=== PATIENT | male | born 1960 | race Caucasian/White ===

== ENCOUNTER 2017-01-07 03:17 | Emergency (ER) | payer BC ==
[2017-01-07 03:37] LABS: BASOPHILS 0.2 %; BASOPHILS ABSOLUTE 0.01 10/3/uL (0.0-0.16); EOSINOPHILS 2.1 %; EOSINOPHILS ABSOLUTE 0.11 10/3/uL (0.0-0.53); ER CBC TAT 0 Hrs 09 Mins; IMMATURE GRANULOCYTES 0.2 %; IMMATURE GRANULOCYTES ABSOLUTE 0.01 10/3/uL (0.0-0.11); LYMPHOCYTES 31.1 %; LYMPHOCYTES ABSOLUTE 1.63 10/3/uL (0.67-4.30); MEAN CORPUS HGB CONC 34.9 g/dL (32.0-36.0); MEAN CORPUSCULAR HEMOGLOB 30.9 pg (26.0-34.0); MEAN CORPUSCULAR VOLUME 88.5 fL (80-100); MEAN PLATELET VOLUME 8.7 fL (9.2-13.0); MONOCYTES ABSOLUTE 0.47 10/3/uL (0.21-1.20); NEUTROPHILS 57.4 %; NEUTROPHILS ABSOLUTE 3.01 10/3/uL (2.02-8.40); PLATELET COUNT 230 10/3/uL (150-400); RBC DISTRIBUTION WIDTH 13.2 % (12.0-16.0); RED CELL COUNT 4.86 10/6/uL (4.7-6.1); WHITE BLOOD CELLS 5.2 10/3/uL (4.5-10.5)
[2017-01-07 03:38] LABS: MANUAL DIFF NO %
[2017-01-07 03:43] LABS: PARTIAL THROMBO TIME 25.7 SEC (22.5-37.2); PROTIME (NOT ORD) 12.8 SEC (12.0-14.5)
[2017-01-07 03:45] LABS: D-DIMER QUANTITATIVE 0.82 ug/mLFEU (< 0.50)
[2017-01-07 03:59] LABS: BUN (BLOOD UREA NITROGEN) 19 MG/DL (6-23); CALCIUM, SERUM 8.4 MG/DL (8.5-10.4); CHEST PAIN PROFILE TAT 0 Hrs 31 Mins; CHLORIDE, SERUM 106 MMOL/L (96-112); CO2 (CARBON DIOXIDE) 27 MMOL/L (24-34); CREATININE 1.06 MG/DL (0.70-1.30); GFR AFRICAN AMERICAN 92 ML/MIN (>=60); GFR NON AFRICAN AMERICAN 79 ML/MIN (>=60); GLUCOSE, SERUM 109 MG/DL (60-99); POTASSIUM, SERUM 3.9 MMOL/L (3.5-5.3); SODIUM, SERUM 141 MMOL/L (135-148); TROPONIN I <0.02 NG/ML (<0.05)
== END 2017-01-07 05:57 | disposition home or self-care (01) ==
LOC: ER 03:17
PROVIDERS: Specialist
DX: R00.2 Palpitations (principal); I10 Essential (primary) hypertension
CPT/HCPCS: 71010; 71275; 80048; 83735; 84443; 84484; 85025; 85379; 85610; 85730; 93005; 93225; 99285; Q9967

== ENCOUNTER 2017-01-07 22:04 | Emergency (ER) | payer BC ==
[2017-01-07 17:49] LABS: BASOPHILS 0.1 %; BASOPHILS ABSOLUTE 0.01 10/3/uL (0.0-0.16); EOSINOPHILS 0.3 %; EOSINOPHILS ABSOLUTE 0.02 10/3/uL (0.0-0.53); HEMATOCRIT 46.3 % (40.0-51.0); HEMOGLOBIN 16.2 g/dL (13.6-17.8); IMMATURE GRANULOCYTES 0.3 %; IMMATURE GRANULOCYTES ABSOLUTE 0.02 10/3/uL (0.0-0.11); LYMPHOCYTES 17.9 %; LYMPHOCYTES ABSOLUTE 1.41 10/3/uL (0.67-4.30); MEAN CORPUSCULAR HEMOGLOB 30.7 pg (26.0-34.0); MEAN CORPUSCULAR VOLUME 87.9 fL (80-100); MEAN PLATELET VOLUME 8.7 fL (9.2-13.0); MONOCYTES 4.8 %; MONOCYTES ABSOLUTE 0.38 10/3/uL (0.21-1.20); NEUTROPHILS 76.6 %; NEUTROPHILS ABSOLUTE 6.05 10/3/uL (2.02-8.40); PLATELET COUNT 235 10/3/uL (150-400); RED CELL COUNT 5.27 10/6/uL (4.7-6.1)
[2017-01-07 17:50] LABS: ER CBC TAT 0 Hrs 12 Mins; MANUAL DIFF NO %; WHITE BLOOD CELLS 7.9 10/3/uL (4.5-10.5)
[2017-01-07 18:06] LABS: CALCIUM, SERUM 9.2 MG/DL (8.5-10.4); CHEST PAIN PROFILE TAT 0 Hrs 28 Mins; CHLORIDE, SERUM 109 MMOL/L (96-112); CREATININE 0.85 MG/DL (0.70-1.30); GFR AFRICAN AMERICAN 114 ML/MIN (>=60); GFR NON AFRICAN AMERICAN 99 ML/MIN (>=60); GLUCOSE, SERUM 94 MG/DL (60-99); POTASSIUM, SERUM 3.5 MMOL/L (3.5-5.3); SODIUM, SERUM 143 MMOL/L (135-148); TROPONIN I <0.02 NG/ML (<0.05)
[2017-01-07 18:10] LABS: BUN (BLOOD UREA NITROGEN) 11 MG/DL (6-23); CO2 (CARBON DIOXIDE) 22 MMOL/L (24-34)
== END 2017-01-07 23:06 | disposition home or self-care (01) ==
LOC: ER 22:04
PROVIDERS: Specialist
DX: R00.2 Palpitations (principal); I10 Essential (primary) hypertension
CPT/HCPCS: 80048; 83735; 84484; 85025; 85610; 85730; 93005; 99285

== ENCOUNTER 2017-01-09 15:55 | Observation (INO) | payer BC ==
--- NOTE | ~2017-01-09 | HP ---
History And Physical [id number] [facility] [place]. [address] NAME: RYAN BORGES : 64 STATUS : ADM Tomasz PAT#: [id number] AGE: 56 ADM/REG DATE : 01/09/17 MR#: [id number] REPORT SERV DATE: 01/10/17 DICTATED BY: ANTONINA YEAGER DATE: 01/10/17 REPORT STATUS : Draft TRANSCRIBED BY: MODNinfa DATE: 01/10/17 DATE OF ADMISSION: 01/09/2017 TRUCK SALES REPRESENTATIVE: Danilo Holt M.D. (has new patient appointment on 02/01 at 0845 hours). CHIEF COMPLAINT: Elevated blood pressure, heart racing, and atypical chest pain. HISTORY OF PRESENT ILLNESS: This is a very pleasant 56-year-old, white gentleman, with no known history of CAD, but who has been working with his PCP diligently to improve his blood pressure. He states that on January 09 while at work, he felt his blood pressure was elevated and his heart rate was elevated. He actually left work and went home. His blood pressure reading at home was 212/120. They notified his PCP who increased his Coreg from 3.125 to 6.25 twice daily. He was told to monitor his blood pressure for the next couple of hours to see if there was any improvement. It had come down to 200/100. The patient reports that recently his lisinopril has been increased from 5 mg to 10 mg daily and he has close contact with his PCP for further evaluation and treatment. The patient reports some atypical right-sided chest discomfort, which is reproducible on exam. 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 He reports feeling clammy when his blood pressure is elevated. He denies any shortness of breath, nausea, diaphoresis, or dizziness. He does report some belching. He denies any clear chest pain, pressure, or tightness. The patient reports a recent diagnosis of a resolved bilateral lower extremity DVTs by ultrasound performed at [facility] in November 2016. He has not been on any anticoagulants. He reports that he traveled to [place] in June of 2016, [place] in August of 2016, and noticed swelling after both of those trips. He also has a followup with Dr. Duran, specific to the resolved DVTs and "reflex of his venous system." The patient denies any recent fever or chills. Describes rare palpitations, most recently Sunday at 0130 hours. Holter monitor turned in January 09; results not yet available. Denies syncopal episodes. No PND or orthopnea. PAST MEDICAL HISTORY: 1. Hypertension. 2. Malignant hypertension. 3. Cholesterol per PCP. 4. Denies diabetes. PAST SURGICAL HISTORY: Meniscus repair, right knee. SOCIAL HISTORY: He is with one child. 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 He works out daily and frequently at [employer] for 40 minutes, most recently on Sunday morning without incident. Denies tobacco or illicits. Occasionally consumes alcohol. FAMILY HISTORY: No embolic events reported in first-degree relatives. The maternal uncle History And Physical [address] [address] NAME: RYAN BORGES : 64 STATUS : ADM Tomasz PAT#: [id number] AGE: 56 ADM/REG DATE : 01/09/17 MR#: [id number] REPORT SERV DATE: 01/10/17 DICTATED BY: ANTONINA YEAGER DATE: 01/10/17 REPORT STATUS : Draft TRANSCRIBED BY: JULITA DATE: 01/10/17 at 47 of a heart attack. REVIEW OF SYSTEMS: A fourteen-point review of systems performed, significant for HPI. No other contributory diagnoses identified. ALLERGIES: NO KNOWN DRUG ALLERGIES. HOME MEDICINES: Aspirin 81 mg daily, Coreg 6.25 mg twice daily, lisinopril 10 mg daily, multivitamin daily, fish oil 1000 mg daily, and Garlique daily. PHYSICAL EXAMINATION: VITAL SIGNS: Bilateral blood pressures on arrival, right 184/99, left 177/79, this morning 154/91, pulse 65, respirations 16, temperature 97.8, O2 saturation 98% on room air. Height 5 feet 11 inches, weight 189 pounds. BMI 26.5. GENERAL: Cooperative, in no apparent distress. HEENT: Pupils 2 mm, sclera nonicteric. Nares patent. Moist mucous membranes. No xanthelasma. NECK: Trachea midline, no thyromegaly. No JVD. No bruits. LYMPH: No cervical lymphadenopathy. No supraclavicular lymphadenopathy. RESPIRATORY: Unlabored respirations. Breath sounds clear bilaterally to posterior auscultation. No wheezes or rhonchi. CARDIOVASCULAR: Regular rate. No murmur, rub or gallop appreciated. EXTREMITIES: Without edema. Pulses 2+ bilaterally. ABDOMEN: Soft, nontender, nondistended, normal bowel sounds auscultated throughout. No organomegaly. SKIN: Warm, dry extremities. No pallor, or cyanosis. PSYCHIATRIC: Appropriate affect. Alert, oriented x3. LABORATORY DATA: Troponin less than 0.02, twice. TSH 2.340, potassium 4.0, BUN 16, creatinine 0.92, glucose 93, and magnesium 2.2. WBC 8.7, hemoglobin 15.6, hematocrit 44.5, and platelet count 233,000. EKG, sinus rhythm. CTA of the chest, 12/2016, no PE. ASSESSMENT AND PLAN: 1. Atypical chest pain, which is reproducible on exam, most likely musculoskeletal in nature. The patient has been observed in the CPOU and held n.p.o. We will proceed with exercise treadmill today which may be converted to myocardial perfusion imaging if warranted. The patient will be discharged home if low risk, no ischemia. If anything suggestive of ischemia, Cardiology referral will be initiated. Otherwise, the patient will be asked to follow up with his primary care physician and Dr. Holt as a new patient appointment and continue followup with Dr. Duran. 2. Hypertension. Hold Coreg and hydralazine p.r.n. Reassess blood pressure medications at discharge. Follow up with primary care physician and Cardiology with a blood History And Physical [address] [address] NAME: RYAN BORGES : 64 STATUS : ADM Tomasz PAT#: [id number] AGE: 56 ADM/REG DATE : 01/09/17 MR#: [id number] REPORT SERV DATE: 01/10/17 DICTATED BY: ANTONINA YEAGER DATE: 01/10/17 REPORT STATUS : Draft TRANSCRIBED BY: JULITA DATE: 01/10/17 pressure diary. The patient has scheduled echocardiogram and renal ultrasound scheduled at [facility] on January 15 under his PCP's orders and direction. 3. Palpitations. Holter monitor turned in 01/09/2017. Await preliminary read download. 4. History of deep vein thrombosis. Echo and renal ultrasound scheduled for January 15. The patient will follow up with Dougie Maurice, Cardiology and Vascular as previously arranged. ALYSIA/JULITA HEMA Bo, UTILITY BILL COMPLAINTS INVESTIGATOR-BC / [id number] CC: HEMA Bo, UTILITY BILL COMPLAINTS INVESTIGATOR-BC Sherine Zurita M.D.
[2017-01-09 16:42] LABS: BASOPHILS 0.1 %; BASOPHILS ABSOLUTE 0.01 10/3/uL (0.0-0.16); EOSINOPHILS 0.2 %; EOSINOPHILS ABSOLUTE 0.02 10/3/uL (0.0-0.53); HEMATOCRIT 44.5 % (40.0-51.0); HEMOGLOBIN 15.6 g/dL (13.6-17.8); IMMATURE GRANULOCYTES 0.2 %; IMMATURE GRANULOCYTES ABSOLUTE 0.02 10/3/uL (0.0-0.11); LYMPHOCYTES 15.5 %; LYMPHOCYTES ABSOLUTE 1.34 10/3/uL (0.67-4.30); MEAN CORPUS HGB CONC 35.1 g/dL (32.0-36.0); MEAN CORPUSCULAR HEMOGLOB 30.5 pg (26.0-34.0); MEAN CORPUSCULAR VOLUME 87.1 fL (80-100); MEAN PLATELET VOLUME 8.7 fL (9.2-13.0); MONOCYTES 4.9 %; MONOCYTES ABSOLUTE 0.42 10/3/uL (0.21-1.20); NEUTROPHILS 79.1 %; NEUTROPHILS ABSOLUTE 6.84 10/3/uL (2.02-8.40); PLATELET COUNT 233 10/3/uL (150-400); RBC DISTRIBUTION WIDTH 12.7 % (12.0-16.0); RED CELL COUNT 5.11 10/6/uL (4.7-6.1); WHITE BLOOD CELLS 8.7 10/3/uL (4.5-10.5)
[2017-01-09 16:43] LABS: MANUAL DIFF NO %
[2017-01-09 16:47] LABS: INTERNATIONAL NORMAL RATI 1.1 UNITS (-); PARTIAL THROMBO TIME 23.5 SEC (22.5-37.2); PROTIME (NOT ORD) 13.7 SEC (12.0-14.5)
[2017-01-09] MEDS ORDERED: FISH-EPA1000 MG PO (16:57)
[2017-01-09] MEDS ORDERED: THERGRANM PO (16:57)
[2017-01-09] MEDS ORDERED: PRIN10 PO (16:57)
[2017-01-09] MEDS ORDERED: COREG6 PO (16:57)
[2017-01-09] MEDS ORDERED: GARLIC PO (16:58)
[2017-01-09] MEDS ORDERED: HALF81 PO (16:58)
[2017-01-09 17:00] LABS: CALCIUM, SERUM 9.2 MG/DL (8.5-10.4); CHEST PAIN PROFILE TAT 0 Hrs 24 Mins; CHLORIDE, SERUM 103 MMOL/L (96-112); CREATININE 0.99 MG/DL (0.70-1.30); GFR AFRICAN AMERICAN 100 ML/MIN (>=60); GFR NON AFRICAN AMERICAN 86 ML/MIN (>=60); GLUCOSE, SERUM 101 MG/DL (60-99); POTASSIUM, SERUM 3.8 MMOL/L (3.5-5.3); SODIUM, SERUM 139 MMOL/L (135-148); TROPONIN I 0.02 NG/ML (<0.05)
[2017-01-09 17:02] LABS: BUN (BLOOD UREA NITROGEN) 17 MG/DL (6-23); CO2 (CARBON DIOXIDE) 30 MMOL/L (24-34)
[2017-01-10 06:13] LABS: BUN (BLOOD UREA NITROGEN) 16 MG/DL (6-23); CALCIUM, SERUM 8.8 MG/DL (8.5-10.4); CHLORIDE, SERUM 107 MMOL/L (96-112); CO2 (CARBON DIOXIDE) 27 MMOL/L (24-34); CREATININE 0.92 MG/DL (0.70-1.30); GFR AFRICAN AMERICAN 109 ML/MIN (>=60); GFR NON AFRICAN AMERICAN 94 ML/MIN (>=60); GLUCOSE, SERUM 93 MG/DL (60-99); SODIUM, SERUM 142 MMOL/L (135-148)
== END 2017-01-10 11:42 | disposition home or self-care (01) ==
LOC: ER 15:55 → SSU1 17:57
PROVIDERS: Clinical Nurse Specialist; Emergency Medicine
DX: R07.89 Other chest pain (principal); I10 Essential (primary) hypertension; Z98.890 Other specified postprocedural states; Z79.82 Long term (current) use of aspirin; Z79.899 Other long term (current) drug therapy; Z86.718 Personal history of other venous thrombosis and embolism
CPT/HCPCS: 71010; 80048; 83735; 84443; 84484; 85025; 85610; 85730; 93005; 93017; 93226; 96374; 99285; A9270-GY; G0378; J0360

== ENCOUNTER 2017-01-11 23:58 | Emergency (ER) | payer BC ==
[2017-01-11 23:22] LABS: BASOPHILS 0.2 %; BASOPHILS ABSOLUTE 0.02 10/3/uL (0.0-0.16); EOSINOPHILS 0.6 %; EOSINOPHILS ABSOLUTE 0.05 10/3/uL (0.0-0.53); ER CBC TAT 0 Hrs 05 Mins; HEMATOCRIT 46.7 % (40.0-51.0); IMMATURE GRANULOCYTES 0.1 %; IMMATURE GRANULOCYTES ABSOLUTE 0.01 10/3/uL (0.0-0.11); LYMPHOCYTES 18.1 %; MEAN CORPUS HGB CONC 34.3 g/dL (32.0-36.0); MEAN CORPUSCULAR HEMOGLOB 29.6 pg (26.0-34.0); MEAN CORPUSCULAR VOLUME 86.5 fL (80-100); MEAN PLATELET VOLUME 8.9 fL (9.2-13.0); MONOCYTES 6.5 %; MONOCYTES ABSOLUTE 0.54 10/3/uL (0.21-1.20); NEUTROPHILS 74.5 %; NEUTROPHILS ABSOLUTE 6.18 10/3/uL (2.02-8.40); PLATELET COUNT 236 10/3/uL (150-400); RBC DISTRIBUTION WIDTH 12.9 % (12.0-16.0); WHITE BLOOD CELLS 8.3 10/3/uL (4.5-10.5)
[2017-01-11 23:24] LABS: MANUAL DIFF NO %
[2017-01-11 23:30] LABS: PARTIAL THROMBO TIME 26.2 SEC (22.5-37.2); PROTIME (NOT ORD) 13.5 SEC (12.0-14.5)
[2017-01-11 23:41] LABS: BUN (BLOOD UREA NITROGEN) 19 MG/DL (6-23); CALCIUM, SERUM 9.1 MG/DL (8.5-10.4); CHEST PAIN PROFILE TAT 0 Hrs 24 Mins; CHLORIDE, SERUM 102 MMOL/L (96-112); CO2 (CARBON DIOXIDE) 27 MMOL/L (24-34); CREATININE 1.01 MG/DL (0.70-1.30); GFR AFRICAN AMERICAN 97 ML/MIN (>=60); GFR NON AFRICAN AMERICAN 84 ML/MIN (>=60); GLUCOSE, SERUM 94 MG/DL (60-99); POTASSIUM, SERUM 3.7 MMOL/L (3.5-5.3); SODIUM, SERUM 138 MMOL/L (135-148); TROPONIN I <0.02 NG/ML (<0.05)
[~2017-01-11 23:58] MED LIST: COREG6 PO; FISH-EPA1000 MG PO; GARLIC PO; HALF81 PO; PRIN10 PO; THERGRANM PO
== END 2017-01-12 01:58 | disposition home or self-care (01) ==
LOC: ER 23:58
PROVIDERS: Pediatrics Pediatric Critical Care Medicine
DX: R07.9 Chest pain, unspecified (principal); I10 Essential (primary) hypertension; Z79.82 Long term (current) use of aspirin; Z79.899 Other long term (current) drug therapy
CPT/HCPCS: 80048; 83735; 84484; 85025; 85610; 85730; 93005; 99285